=== PATIENT | female | born 1965 | race African-American/Black ===

== ENCOUNTER 2017-08-10 19:21 | Observation (INO) | payer OTHER ==
[~2017-08-10] VITALS: Ht 162.6 cm; Wt 92.5 kg
[~2017-08-10 19:21] MED LIST: AZELASTINE137 MCG/0. BOTH NARES; Bactrim,Septra DS 80 PO; CITALOPRAM HBR40 M1 PO; DIOVAN40 MG PO; FLEXERIL5 MG PO; MEDROXYPRO150 MG/1 M IM; METFORMIN HCL500 M4 PO; METFORMIN HCL500 MG PO; NITROSTAT0.4 MG SL; VALSARTAN-HCTZ1 EAC2 PO; WELLBUTRIN SR150 MG PO; ZANTAC150 MG PO
[2017-08-10 21:52] LABS: HEMATOCRIT 37.8 % (36.0-46.0); HEMOGLOBIN 12.6 G/DL (11.9-15.5); MCH 25.6 PG (29.0-34.0); MCHC 33.3 G/DL (30.0-36.0); MCV 76.7 FL (83-99); PLATELET COUNT 361 K/uL (156-360); RBC DIS.WIDTH-CV 14.4 % (11.8-14.6); RBC DIS.WIDTH-SD 39.7 % (39-53); RED BLOOD COUNT 4.93 M/uL (3.80-5.20); WHITE BLOOD COUNT 15.9 K/uL (4.1-10.2)
[2017-08-10 22:00] LABS: ALBUMIN 3.7 g/dL (3.2-4.8); CHLORIDE 109 mEq/L (99-109); POTASSIUM 3.3 mEq/L (3.7-5.4); SODIUM 143 mEq/L (136-147)
[2017-08-10 22:03] LABS: GLUCOSE 140 mg/dL (70-99); TOTAL PROTEIN 7.2 g/dL (6.4-8.3)
[2017-08-10 22:04] LABS: TOTAL BILIRUBIN 0.2 mg/dL (0.0-1.0)
[2017-08-10 22:06] LABS: ALKALINE PHOSPHATASE 91 IU/L (3-129); CREATININE 0.8 mg/dL (0.6-1.3); GFR ESTIMATE (CALCULATED) > 59 mL/min/; SERUM ETHYL ALCOHOL < 10 mg/dL
[2017-08-10 22:07] LABS: UREA NITROGEN (BUN) 5 mg/dL (9-23)
[2017-08-10 22:08] LABS: AST (GOT) 13 IU/L (2-34)
[2017-08-10 22:09] LABS: ALT (GPT) 28 IU/L (3-49)
[2017-08-10 23:02] LABS: TROP-I INTERPRETATION NEGATIVE; TROPONIN-I < 0.01 ng/mL (0.0-0.30)
[2017-08-10 23:10] LABS: AMPHETAMINE NEGATIVE (500 ng/mL); BARBITURATES NEGATIVE (200 ng/mL); BENZODIAZEPINES NEGATIVE (150 ng/mL); BUPRENORPHINE NEGATIVE (10 ng/mL); COCAINE PRESUMPTIVE POSITIVE (150 ng/mL); METHADONE NEGATIVE (200 ng/mL); METHAMPHETAMINE NEGATIVE (500 ng/mL); OPIATES (MORPHINE) NEGATIVE (100 ng/mL); OXYCODONE NEGATIVE (100 ng/mL); PHENCYCLIDINE NEGATIVE (25 ng/mL); PROPOXYPHENE NEGATIVE (300 ng/mL); THC CANNABINOIDS NEGATIVE (50 ng/mL); TRICYCLIC ANTIDEPRESSANTS NEGATIVE (300 ng/mL)
[2017-08-11 02:08] LABS: TROP-I INTERPRETATION NEGATIVE; TROPONIN-I < 0.01 ng/mL (0.0-0.30)
[2017-08-11 07:45] VITALS: BP 150/77
[2017-08-11 08:44] LABS: HEMATOCRIT 39.1 % (36.0-46.0); HEMOGLOBIN 12.5 G/DL (11.9-15.5); MCH 24.8 PG (29.0-34.0); MCV 77.4 FL (83-99); RBC DIS.WIDTH-CV 14.4 % (11.8-14.6); RBC DIS.WIDTH-SD 39.8 % (39-53); RED BLOOD COUNT 5.05 M/uL (3.80-5.20); WHITE BLOOD COUNT 13.2 K/uL (4.1-10.2)
[2017-08-11 09:04] LABS: TROP-I INTERPRETATION NEGATIVE; TROPONIN-I < 0.01 ng/mL (0.0-0.30)
[2017-08-11 09:07] LABS: CHLORIDE 106 MEQ/L (99-109); CREATININE 0.6 MG/DL (0.6-1.3); GFR ESTIMATE (CALCULATED) > 59 mL/min/; GLUCOSE 123 mg/dL (70-99); POTASSIUM 3.5 MEQ/L (3.7-5.4); SODIUM 142 MEQ/L (136-147); UREA NITROGEN (BUN) 5 mg/dL (9-23)
[2017-08-11] MEDS ORDERED: CLARITIN,ALAVAR10 MG PO (09:14)
[2017-08-11 09:27] LABS: PLATELET COUNT 370 K/uL (156-360)
[2017-08-11 10:22] LABS: HEMOGLOBIN A1c (GLYCOHEMOGLOB) 6.8 % (Below 5.7)
[2017-08-11 11:32] VITALS: BP 178/81
[2017-08-11] MEDS ORDERED: ESCITALOPRAM OX10 MG PO (12:59)
[2017-08-11 15:45] VITALS: BP 176/90
[2017-08-11] MEDS ORDERED: AMLODIPINE BESY10 MG PO (17:05)
[2017-08-11 20:18] VITALS: BP 163/77
[2017-08-12 00:23] VITALS: BP 165/79
[2017-08-12 04:39] VITALS: BP 139/71
[2017-08-12 07:44] VITALS: BP 142/79
[2017-08-12] MEDS ORDERED: NOVOLOG 10100 UNITS/ SC (11:27)
== END 2017-08-12 10:57 ==
LOC: EME 19:21 → EDOF 08-11 00:41 → 4SOUTH 08-11 00:41 → EDOF 08-11 00:41 → ENRESERV 08-11 00:43 → 4SOUTH 08-11 02:29
PROVIDERS: Emergency Medicine; Hospitalist; Physician Assistant Medical
DX: R07.9 Chest pain, unspecified (principal); R94.31 Abnormal electrocardiogram [ECG] [EKG]; I10 Essential (primary) hypertension; F33.2 Major depressive disorder, recurrent severe without psychotic features; R45.851 Suicidal ideations; E11.9 Type 2 diabetes mellitus without complications; F17.200 Nicotine dependence, unspecified, uncomplicated; D72.829 Elevated white blood cell count, unspecified; Z88.0 Allergy status to penicillin; F14.10 Cocaine abuse, uncomplicated; E78.5 Hyperlipidemia, unspecified; Z79.84 Long term (current) use of oral hypoglycemic drugs
CPT/HCPCS: 71045; 80048; 80053; 82948; 83036; 84484; 84999; 85027; 93005; 99281; 99285; G0378; G0480; J1644; J1815; J7030

== ENCOUNTER 2017-08-12 08:32 | Inpatient (IN) | payer OTHER ==
[~2017-08-12] VITALS: Ht 162.6 cm; Wt 89.6 kg
[~2017-08-12 08:32] MED LIST changes: +AMLODIPINE BESY10 MG PO; +CLARITIN,ALAVAR10 MG PO; +ESCITALOPRAM OX10 MG PO
[2017-08-12 11:11] VITALS: BP 128/64
[2017-08-12 11:17] VITALS: BP 128/64
[2017-08-12] MEDS ORDERED: NOVOLOG 10100 UNITS/ SC (11:27)
[2017-08-12 17:00] VITALS: BP 150/76
[2017-08-13 09:32] VITALS: BP 131/73
[2017-08-13 16:42] VITALS: BP 119/59
[2017-08-14 08:02] VITALS: BP 124/67
[2017-08-14 16:26] VITALS: BP 153/72
[2017-08-15 07:44] VITALS: BP 139/68
[2017-08-15 15:31] VITALS: BP 130/73
[2017-08-16 07:54] VITALS: BP 126/72
[2017-08-16 16:03] VITALS: BP 129/68
[2017-08-17 07:58] VITALS: BP 141/79
[2017-08-17 11:54] VITALS: BP 140/70
[2017-08-17 16:28] VITALS: BP 112/80
[2017-08-18 08:02] VITALS: BP 156/78
[2017-08-18] MEDS ORDERED: ESCITALOPRAM OX10 MG PO (10:23)
[2017-08-18] MEDS ORDERED: LOSARTAN POTAS100 MG PO (10:23)
[2017-08-18] MEDS ORDERED: AMLODIPINE BESY10 MG PO (13:02)
== END 2017-08-18 12:50 | disposition home or self-care (01) | DRG 885 ==
LOC: 1WEST 08:32 → ENRESERV 08:33 → 1WEST 11:00
PROVIDERS: Psychiatry & Neurology Psychiatry
DX: F33.2 Major depressive disorder, recurrent severe without psychotic features (principal); R45.851 Suicidal ideations; F14.20 Cocaine dependence, uncomplicated; F17.210 Nicotine dependence, cigarettes, uncomplicated; Z56.0 Unemployment, unspecified
CPT/HCPCS: 82948; 97150 GO; 97165 GO; J1815